=== PATIENT | female | born 1940 | race Caucasian/White ===

== ENCOUNTER 2017-06-29 12:04 | Emergency (ER) | payer MEDICARE, BC ==
[2017-06-29] MEDS ORDERED: Furosemide 40 MG/4 ML VIAL IVPUSH ONE (12:09)
--- NOTE | 2017-06-29 12:50 | EDM.PDOC ---
ED HPI GENERAL MEDICAL PROBLEM - General Chief Complaint: Cardiovascular Problem Stated Complaint: new onset a-fib Time Seen by Provider: 06/29/17 12:08 Source of Information: Reports: Patient, Other (Provider) History Limitations: Reports: No Limitations - History of Present Illness INITIAL COMMENTS - FREE TEXT/NARRATIVE: Patient is a 77 year who was seen by provider with chief complaint of shortness of breath with minimal exertion it was noted that she was on atrial fibrillation in the clinic to was transferred to the ER at this time she has a LORRAINE score of 3 I did discuss this with a [facility] cardiology we will transfer her to a [facility] for admission and evaluatio and treatment. Onset: Gradual Duration: Week(s):, Getting Worse Location: Reports: Chest Severity: Moderate Improves with: Reports: Rest Worsens with: Reports: Other (Activity) Context: Reports: Sick Contact Associated Symptoms: Reports: Diaphoresis, Shortness of Breath - Related Data Allergies Allergy/AdvReac Type Severity Reaction Status Date / Time No Known Allergies Allergy Verified 06/29/17 12:24 Home Meds: Home Meds Metoprolol Succinate 25 mg PO BEDTIME 05/16/14 [History] Aspirin [Halfprin] 81 mg PO DAILY@1200 06/29/17 [History] Cholecalciferol (Vitamin D3) [Vitamin D3] 4,000 unit PO BEDTIME 06/29/17 [ History] Fish Oil/DHA/EPA [Fish Oil 1,200 MG] 1 tab PO Q48H 06/29/17 [History] Lisinopril 10 mg PO BEDTIME 06/29/17 [History] Loratadine [Claritin] 10 mg PO DAILY@1200 06/29/17 [History] Lutein/Minerals/Vit A,C & E [Ocuvite] 1 tab PO Q48H 06/29/17 [History] Montelukast [Singulair] 10 mg PO BEDTIME 06/29/17 [History] Multivit-Min/FA/Lycopene/Lut [Centrum Silver Tablet] 1 tab PO DAILY 06/29/17 [ History] atorvaSTATin [Lipitor] 10 mg PO BEDTIME 06/29/17 [History] Social & Family History - Tobacco Use Second Hand Smoke Exposure: No - Alcohol Use Days Per Week of Alcohol Use: 0 - Recreational Drug Use Recreational Drug Use: No Drug Use in Last 12 Months: No ED ROS GENERAL - Review of Systems Review Of Systems: See Below Constitutional: Reports: Weakness, Fatigue, Night Sweats HEENT: Reports: No Symptoms Respiratory: Reports: Shortness of Breath Cardiovascular: Reports: Dyspnea on Exertion Endocrine: Reports: Other (Hypothyroid) GI/Abdominal: Reports: No Symptoms : Reports: No Symptoms Musculoskeletal: Reports: No Symptoms Skin: Reports: No Symptoms Neurological: Reports: No Symptoms Psychiatric: Reports: No Symptoms Free Text/Narrative/Comment: Patient seen and discussed case with hospitalist and [facility] we decided to transfer her to [facility] by ambulance for cardiac evaluation ED EXAM, GENERAL - Physical Exam Exam: See Below Exam Limited By: No Limitations General Appearance: Alert, WD/WN, No Apparent Distress Ears: Normal External Exam, Normal Canal, Hearing Grossly Normal, Normal TMs Nose: Normal Inspection, Normal Mucosa, No Blood Throat/Mouth: Normal Inspection, Normal Lips, Normal Teeth, Normal Gums, Normal Oropharynx, Normal Voice, No Airway Compromise Head: Atraumatic, Normocephalic Neck: Normal Inspection, Supple, Non-Tender, Full Range of Motion Respiratory/Chest: Other (Shortness breath with minimal eexertion minimal) Cardiovascular: Tachycardia, Irregularly Irregular GI/Abdominal: Normal Bowel Sounds, Soft, Non-Tender, No Organomegaly, No Distention, No Abnormal Bruit, No Mass Back Exam: Normal Inspection, Full Range of Motion, NT Extremities: Pedal Edema Neurological: Alert, Oriented, CN II-XII Intact, Normal Cognition, Normal Gait, Normal Reflexes, No Motor/Sensory Deficits Psychiatric: Normal Affect, Normal Mood Skin Exam: Warm, Dry, Intact, Normal Color, No Rash Lymphatic: No Adenopathy Course - Orders/Labs/Meds Orders: Active Orders 24 hr Category Date Time Status DD [D-DIMER QUANTITATIVE] [COAG] Stat Lab 06/29/17 12:10 Received Labs: Laboratory Tests 06/29/17 06/29/17 Range/Units 12:10 12:15 WBC 10.3 H (4.0-10.2) K/uL RBC 4.14 (3.77-5.09) M/uL Hgb 12.4 (11.7-15.5) g/dL Hct 38.2 (34.0-46.0) % MCV 92.3 (84.0-98.0) fL MCH 30.0 (28.2-33.3) pg MCHC 32.5 (31.7-36.0) g/dL RDW 13.4 (11.2-14.1) % Plt Count 249 (150-350) K/uL Neut % (Auto) 70.5 (45.0-80.0) % Lymph % (Auto) 19.3 (10.0-50.0) % [place] % (Auto) 7.4 (2.0-14.0) % Eos % (Auto) 2.3 (0.0-5.0) % Baso % (Auto) 0.5 (0.0-2.0) % Neut # (Auto) 7.25 H (1.40-7.00) K/uL Lymph # (Auto) 1.99 (0.50-3.50) K/uL [place] # (Auto) 0.76 (0.00-1.00) K/uL Eos # (Auto) 0.24 (0.00-0.50) K/uL Baso # (Auto) 0.05 (0.00-0.20) K/uL NT-Pro-B Natriuret Pep 2710 H (0-125) pg/mL Meds: Medications Discontinued Medications Generic Name Dose Route Start Last Admin Trade Name Freq PRN Reason Stop Dose Admin Furosemide 40 mg 06/29/17 12:09 06/29/17 12:17 Lasix IVPUSH 06/29/17 12:10 40 mg NOW ONE Administration Departure - Departure Time of Disposition: 13:02 Disposition: DC/Tfer to Acute Hospital 02 Reason for Transfer *Q: Primary PCI Indicated Condition: Good Clinical Impression: Atrial fibrillation, Atrial fibrillation by electrocardiogram, Congestive heart failure of unknown etiology Referrals: Ana Garces NP [Primary Care Provider] - Care Plan Goals: At this time we will transfer her to [facility] - Problem List & Annotations (1) Atrial fibrillation by electrocardiogram SNOMED Code(s): 707854262 Code(s): I48.91 - UNSPECIFIED ATRIAL FIBRILLATION Status: Acute Current Visit: Yes Annotation/Comment:: Patient is evaluated atrial fib question age at this time we considered starting her on anticoagulants but will transfer her so she could have cardiology evaluation and treatment she is currently on an aspirin a day 1 today (2) Congestive heart failure SNOMED Code(s): 18631757 Code(s): I50.9 - HEART FAILURE, UNSPECIFIED Status: Acute Current Visit: Yes Annotation/Comment:: Patient started on Lasix 40 mg IV now (3) Congestive heart failure of unknown etiology SNOMED Code(s): 88225098 Code(s): I50.9 - HEART FAILURE, UNSPECIFIED Status: Acute Current Visit: Yes Annotation/Comment:: Patient noted to have elevated BNP and chest x-ray compatible with CHF will start her on Lasix 40 mg IV push now - Problem List Review Problem List Initiated/Reviewed/Updated: Yes - My Orders Last 24 Hours: My Active Orders 06/29/17 12:10 DD [D-DIMER QUANTITATIVE] [COAG] Stat - Assessment/Plan Last 24 Hours: My Active Orders 06/29/17 12:10 DD [D-DIMER QUANTITATIVE] [COAG] Stat
[2017-06-29] MEDS ORDERED: Metoprolol Tartrate 5 MG/5 ML SDV IVPUSH ONE (13:15)
[2017-06-29 14:05] VITALS: BP 139/90
== END 2017-06-29 13:26 ==
LOC: LL.ED 12:04
DX: I50.9 Heart failure, unspecified (principal); I48.91 Unspecified atrial fibrillation; Z79.82 Long term (current) use of aspirin; Z79.899 Other long term (current) drug therapy; R06.00 Dyspnea, unspecified; R94.31 Abnormal electrocardiogram [ECG] [EKG]
CPT/HCPCS: 36415; 83880; 85025; 85379; 96374; 96375; 99285; J1940; 71020; 93005; J3490

== ENCOUNTER 2018-04-11 22:26 | Emergency (ER) | payer MEDICARE, BC ==
--- NOTE | 2018-04-11 22:58 | EDM.PDOC ---
ED HPI GENERAL MEDICAL PROBLEM - General Chief Complaint: General Stated Complaint: elevated K, creatinine Time Seen by Provider: 04/11/18 22:30 Source of Information: Reports: Patient History Limitations: Reports: No Limitations - History of Present Illness INITIAL COMMENTS - FREE TEXT/NARRATIVE: Patient is a 77-year-old female who was brought in to the ER by because of a call received from the [facility]er stating that her potassium was elevated at 5.6 and creatinine of 1.34 and that she she should be seen in the ER at this time patient is alert oriented in no acute distress eyes were PERRLA extraocular movement intact lungs clear heart regular rate Onset: Today Duration: Hour(s): - Related Data Allergies Allergy/AdvReac Type Severity Reaction Status Date / Time No Known Allergies Allergy Verified 06/29/17 12:24 Home Meds: Home Meds Metoprolol Succinate 25 mg PO BEDTIME 05/16/14 [History] Aspirin [Halfprin] 81 mg PO DAILY@1200 06/29/17 [History] Cholecalciferol (Vitamin D3) [Vitamin D3] 4,000 unit PO BEDTIME 06/29/17 [ History] Fish Oil/DHA/EPA [Fish Oil 1,200 MG] 1 tab PO Q48H 06/29/17 [History] Lisinopril 10 mg PO BEDTIME 06/29/17 [History] Loratadine [Claritin] 10 mg PO DAILY@1200 06/29/17 [History] Lutein/Minerals/Vit A,C & E [Ocuvite] 1 tab PO Q48H 06/29/17 [History] Montelukast [Singulair] 10 mg PO BEDTIME 06/29/17 [History] Multivit-Min/FA/Lycopene/Lut [Centrum Silver Tablet] 1 tab PO DAILY 06/29/17 [ History] atorvaSTATin [Lipitor] 10 mg PO BEDTIME 06/29/17 [History] Past Medical History HEENT History: Reports: Cataract Cardiovascular History: Reports: Afib, Heart Failure, Hypertension, SOB on Exertion - Past Surgical History HEENT Surgical History: Reports: Cataract Surgery ED ROS GENERAL - Review of Systems Review Of Systems: See Below Constitutional: Reports: No Symptoms HEENT: Reports: No Symptoms Respiratory: Reports: No Symptoms Cardiovascular: Reports: No Symptoms Endocrine: Reports: No Symptoms GI/Abdominal: Reports: No Symptoms : Reports: No Symptoms Musculoskeletal: Reports: No Symptoms Skin: Reports: No Symptoms Neurological: Reports: No Symptoms Psychiatric: Reports: No Symptoms Hematologic/Lymphatic: Reports: No Symptoms Immunologic: Reports: No Symptoms ED EXAM, GENERAL - Physical Exam Exam: See Below Exam Limited By: No Limitations General Appearance: Alert, WD/WN, No Apparent Distress Ears: Normal External Exam, Normal Canal, Hearing Grossly Normal, Normal TMs Ear Exam: Bilateral Ear: Auricle Normal, Canal Normal, TM normal Nose: Normal Inspection, Normal Mucosa, No Blood Throat/Mouth: Normal Inspection, Normal Lips, Normal Teeth, Normal Gums, Normal Oropharynx, Normal Voice, No Airway Compromise Head: Atraumatic, Normocephalic Neck: Normal Inspection, Supple, Non-Tender, Full Range of Motion Respiratory/Chest: No Respiratory Distress, Lungs Clear, Normal Breath Sounds, No Accessory Muscle Use, Chest Non-Tender Cardiovascular: Normal Peripheral Pulses, Regular Rate, Rhythm, No Edema, No Gallop, No JVD, No Murmur, No Rub GI/Abdominal: Normal Bowel Sounds, Soft, Non-Tender, No Organomegaly, No Distention, No Abnormal Bruit, No Mass (Female) Exam: Normal Bimanual Exam, Deferred Rectal (Female) Exam: Deferred Back Exam: Normal Inspection, Full Range of Motion, NT Extremities: Normal Inspection, Normal Range of Motion, Non-Tender, Normal Capillary Refill, No Pedal Edema Neurological: Alert, Oriented, CN II-XII Intact, Normal Cognition, Normal Gait, Normal Reflexes, No Motor/Sensory Deficits Psychiatric: Normal Affect, Normal Mood Skin Exam: Warm, Dry, Intact, Normal Color, No Rash Course - Orders/Labs/Meds Orders: Active Orders 24 hr Category Date Time Status EKG Documentation Completion [RC] ASDIRECTED Care 04/11/18 22:38 Active EKG 12 Lead [EK] Routine Ther 04/11/18 22:38 Ordered Labs: Laboratory Tests 04/11/18 04/11/18 Range/Units 22:34 22:34 WBC 8.8 (4.0-10.2) K/uL RBC 3.96 (3.77-5.09) M/uL Hgb 11.8 (11.7-15.5) g/dL Hct 36.2 (34.0-46.0) % MCV 91.4 (84.0-98.0) fL MCH 29.8 (28.2-33.3) pg MCHC 32.6 (31.7-36.0) g/dL RDW 13.1 (11.2-14.1) % Plt Count 264 (150-350) K/uL Neut % (Auto) 61.4 (45.0-80.0) % Lymph % (Auto) 27.0 (10.0-50.0) % [place] % (Auto) 8.2 (2.0-14.0) % Eos % (Auto) 2.9 (0.0-5.0) % Baso % (Auto) 0.5 (0.0-2.0) % Neut # (Auto) 5.43 (1.40-7.00) K/uL Lymph # (Auto) 2.38 (0.50-3.50) K/uL [place] # (Auto) 0.72 (0.00-1.00) K/uL Eos # (Auto) 0.26 (0.00-0.50) K/uL Baso # (Auto) 0.04 (0.00-0.20) K/uL Sodium 139 (136-145) mmol/L Potassium 3.7 (3.5-5.1) mmol/L Chloride 102 (98-107) mmol/L Carbon Dioxide 28.1 (21.0-32.0) mmol/L BUN 23 H (7-18) mg/dL Creatinine 1.43 H (0.51-1.17) mg/dL Est Cr Clr Drug Dosing TNP Estimated GFR (MDRD) 36 mL/min Glucose 126 H (74-106) mg/dL Calcium 8.7 (8.5-10.1) mg/dL Total Bilirubin 0.3 (0.2-1.0) mg/dL AST 23 (15-37) U/L ALT 26 (12-78) U/L Alkaline Phosphatase 104 (46-116) IU/L Total Protein 7.5 (6.4-8.2) g/dL Albumin 3.9 (3.4-5.0) g/dL Departure - Departure Time of Disposition: 23:15 Disposition: Home, Self-Care 01 Condition: Good Clinical Impression: Acute renal injury - Discharge Information Referrals: Ana Garces NP [Primary Care Provider] - Forms: ED Department Discharge Additional Instructions: Patient's BMP was repeated her potassium was 3.7 her creatinine was 1.43 at this time I went ahead and discontinue her IV an EKG was obtained which showed no ST elevations plan patient is to or hydrate with these 6 bilateral of water a day she is to follow-up with her [facility]er next week she is to discontinue her lisinopril and continue her an metoprolol. Care Plan Goals: Patient will be sent home with the above instructions follow-up with Ana if need be - My Orders Last 24 Hours: My Active Orders 04/11/18 22:38 EKG Documentation Completion [RC] ASDIRECTED EKG 12 Lead [EK] Routine - Assessment/Plan Last 24 Hours: My Active Orders 04/11/18 22:38 EKG Documentation Completion [RC] ASDIRECTED EKG 12 Lead [EK] Routine
[2018-04-11 23:05] LABS: CHLORIDE,CL 102 mmol/L (98-107); SODIUM,NA 139 mmol/L (136-145)
[2018-04-12 00:28] VITALS: BP 150/78
== END 2018-04-11 23:45 | disposition home or self-care (01) ==
LOC: LL.ED 22:26
DX: N17.9 Acute kidney failure, unspecified (principal); I48.91 Unspecified atrial fibrillation; I11.0 Hypertensive heart disease with heart failure; I50.9 Heart failure, unspecified; Z79.899 Other long term (current) drug therapy; Z79.82 Long term (current) use of aspirin
CPT/HCPCS: 36000; 36415; 80053; 85025; 93005; 99285

== ENCOUNTER 2020-12-24 10:19 | Inpatient (IN) | payer MEDICARE, BC ==
[2020-12-24] MEDS ORDERED: Famotidine 20 MG/2 ML SDV IVPUSH ONE (10:21)
--- NOTE | 2020-12-24 10:21 | EDM.PDOC ---
ED HPI GENERAL MEDICAL PROBLEM - General Chief Complaint: Chest Pain Stated Complaint: heart palpatations Time Seen by Provider: 12/24/20 10:21 Source of Information: Reports: Patient, Old Records ([facility] chart/EMR), Other ( [facility]. Limited transfer records from [facility] in [place]) History Limitations: Reports: No Limitations - History of Present Illness INITIAL COMMENTS - FREE TEXT/NARRATIVE: The patient was brought to the emergency room via private automobile by her for evaluation of return to atrial fibrillation with rapid ventricular response with initial evaluation by her regular provider, KATY Pizarro at the [facility], shortly prior to arrival with no treatment other than an EKG in her clinic prior to patient transfer. Her provider did call me prior to the patient arriving to this facility. Note that the patient has had heart flutter with secondary dizziness, occasional nausea, mild dyspnea, decreased ex ercise tolerance and a 5 pound weight gain during the last week. She has been noncompliant with her medical therapy, including decreasing her Lopressor therapy to only a every afternoon rather than twice daily basis about 6 months ago. She also stopped her Xarelto about 1 year ago on her own, however she has been taking aspirin. The patient denies any orthostasis, orthopnea, diaphoresis, paresthesias, or any other anginal-type symptoms. No recent history of abdominal pain, heartburn, nausea, diarrhea, melena, gross hematochezia, or any food intolerance, including fatty foods, etc. with normal bowel movement earlier today. She denies any gross hematuria, colic, or other UTI symptoms. The patient also denies any recent fever, cough, wheezing, etc., and she has already had her 2 COVID-19 immunizations. No history of recent headaches, visual changes, diplopia, change in mental status, or other change in neurological status. She denies any other pain or discomfort. No history of ex cessive decongestants, etc. Onset: Gradual, Other (As above) Duration: Week(s): (As above), Constant, Getting Worse Location: Reports: Other (No pain) Quality: Reports: Same as Previous Episode Severity: Moderate (Tachycardia) Improves with: Reports: None Worsens with: Reports: None Context: Reports: Other (As above). Denies: Sick Contact, Trauma Associated Symptoms: Reports: Nausea/Vomiting (No emesis), Shortness of Breath. 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: Reports: Other (see below) (None) - Related Data Allergies Allergy/AdvReac Type Severity Reaction Status Date / Time No Known Allergies Allergy Verified 12/24/20 10:21 Home Meds: Home Meds Metoprolol Succinate 50 mg PO BEDTIME 05/16/14 [History] Aspirin [Halfprin] 81 mg PO BEDTIME 06/29/17 [History] Lutein/Minerals/Vit A,C & E [Ocuvite] 1 tab PO DAILY@1200 06/29/17 [History] Montelukast [Singulair] 10 mg PO BEDTIME 06/29/17 [History] Multivit-Min/FA/Lycopen/Lutein [Centrum Silver Tablet] 1 tab PO DAILY@1200 06/29/17 [History] atorvaSTATin [Lipitor] 10 mg PO BEDTIME 06/29/17 [History] Calcium Carbonate [Calcium] 600 mg PO DAILY@1200 12/24/20 [History] Cholecalciferol (Vitamin D3) [Vitamin D3] 25 mcg PO DAILY@1200 12/24/20 [History] Loratadine [Claritin] 10 mg PO DAILY@1200 12/24/20 [History] Magnesium Oxide 400 mg PO DAILY@1200 12/24/20 [History] Past Medical History HEENT History: Reports: Allergic Rhinitis, Cataract, Impaired Vision. Denies: Glaucoma, Hard of Hearing, Macular Degeneration, Otitis Media, Retinal Detachment Cardiovascular History: Reports: Afib, Cardiomyopathy, Heart Failure, Heart Murmur, High Cholesterol, Hypertension, Pulmonary Hypertension, Other (See Below). Denies: Aneurysm, Arrhythmia, Blood Clots/VTE/DVT, CAD, RI, Pacemaker, PTCA, PVD, Syncope Other Cardiovascular History: Recurrent atrial fibrillation with rapid ventricular response and secondary heart failure with cardioversions and ablation procedure as below. Dyslipidemia. Moderate tricuspid valve insufficiency, mild mitral valve insufficiency, mitral valve prolapse, and mild pulmonary hypertension by echocardiogram. Respiratory History: Reports: Bronchitis, Recurrent, Intubation, Previous. Denies: Asthma, COPD, Intubation, Difficult, PE, Pneumonia, Recurrent, Pneumothorax, Sleep Apnea, TB Gastrointestinal History: Reports: Diverticulosis, Hemorrhoids. Denies: Celiac Disease, Cholelithiasis, Chronic Constipation, Chronic Diarrhea, Colon Polyp, Fatty Liver, Fecal Incontinence, Gastritis, GERD, GI Bleed, Hepatitis, Hiatal Hernia, Inflammatory Bowel Disease, Irritable Bowel Syndrome, Jaundice, Pancreatitis, PUD Genitourinary History: Reports: Chronic Renal Insuffiency, UTI, Recurrent, Other (See Below). Denies: Acute Renal Failure, Renal Calculus, Retention, Urinary, STD, Urinary Incontinence Other Genitourinary History: Grade 3 chronic renal insufficiency. 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 SAB in first trimester requiring D&C as below. Otherwise, full term without complications during pregnancies or deliveries. Musculoskeletal History: Reports: Arthritis, Back Pain, Chronic, Neck Pain, Chronic, Osteoarthritis, Other (See Below). Denies: Amputation, Fracture (Do you have any problems with rheumatoid arthritis lupus or gout previous broken bones of any sort with arthritisIron), Gout, Osteoporosis, RA, SLE Other Musculoskeletal History: Bilateral coxarthrosis. Neurological History: Reports: None, Migraines. Denies: Alzheimers Disease, Cerebral Aneurysms, Concussion, CVA, Headaches, Chronic, Head Trauma, MS, Neuropathy, Peripheral, Parkinson's, Seizure, TIA, Vertigo Psychiatric History: Reports: None. Denies: Abuse, Victim of, ADD, ADHD, Addiction, Alzheimers Disease, Anxiety, Dementia, Depression, Psych Hospitalization(s), PTSD, Suicide Attempt, Suicidal Ideation Endocrine/Metabolic History: Reports: Obesity/BMI 30+, Vitamin D Deficiency. Denies: Diabetes, Gestational, Diabetes, Type I, Diabetes, Type II, Diabetes Mellitus, Type 3c, Hypothyroidism, IDDM, Osteopenia, Osteoporosis Hematologic History: Reports: Anemia, Blood Transfusion(s), Other (See Below). Denies: Iron Deficiency Other Hematologic History: Transfusion after first delivery and shortly prior to hysterectomy secondary to dysfunctional uterine bleeding. Anemia with moderate blood loss not requiring blood transfusion at time of ablation as below. Immunologic History: Denies: AIDS, HIV, SLE Oncologic (Cancer) History: Denies: Basal Cell Carcinoma, Breast, Cervix, Colon, Hodgkin's Lymphoma, Leukemia, Lymphoma, Malignant Melanoma, Non-Hodgkin's Lymphoma, Ovarian, Squamous Cell Carcinoma, Uterine Dermatologic History: Reports: None. Denies: Eczema, Psoriasis - Infectious Disease History Infectious Disease History: Reports: Chicken Pox, Measles, Mumps. Denies: C- Difficile, Meningitis, Mononucleosis, MRSA, Novel Coronavirus, Pertussis (Whooping Cough), Rheumatic Fever, Rubella, Scarlet Fever, Shingles, TB, VRE - Past Surgical History Head Surgeries/Procedures: Reports: None HEENT Surgical History: Reports: Cataract Surgery, Oral Surgery, Other (See Below). Denies: Adenoidectomy, Eye Surgery, Laser Surgery, LASIK, Myringotomy w Tube(s), Naso-Sinus Surgery, Tonsillectomy Other HEENT Surgeries/Procedures: Bilateral cataract surgeries at age 59. Complete upper teeth extraction with multiple teeth extraction lowers. Cardiovascular Surgical History: Reports: Cardiac Ablation, Other (See Below). Denies: Varicose Other Cardiovascular Surgeries/Procedures: Electrocardioversion for atrial fibrillation on 07/13/2017 and 06/30/2017. Cardiac ablation on 08/04/2017. Respiratory Surgical History: Reports: None. Denies: Thoracentesis GI Surgical History: Reports: Appendectomy, Colonoscopy, Other (See Below). Denies: Cholecystectomy, EGD, Hernia, Abdominal, Hernia, Inguinal, Hernia Repair/Other, Polypectomy Other GI Surgeries/Procedures: Appendectomy concomitant with hysterectomy as below. Colonoscopy on 05/16/2014. Female Surgical History: Reports: Breast Biopsy, D&C, Hysterectomy, Oophorectomy, Tubal Ligation, Other (See Below). Denies: Section Other Female Surgeries/Procedures: Left breast biopsy secondary to benign disease at age in her 30s. Complete hysterectomy with left-sided oophorectomy secondary to dysfunctional uterine bleeding at age 49. Bilateral tubal ligation in her early 40s. D&C secondary to SAB as above. Endocrine Surgical History: Reports: None. Denies: Thyroid Biopsy Neurological Surgical History: Reports: None. Denies: C-Spine, Discectomy, Laminectomy, Lumbar Spine, Sacral Spine, Spinal Fusion, Thoracic Spine, Vertebroplasty Musculoskeletal Surgical History: Reports: None. Denies: Arthroscopic Procedure, Carpal Tunnel, Ganglion Cyst, Joint Replacement, ORIF, Shoulder Surgery Oncologic Surgical History: Reports: None Dermatological Surgical History: Reports: None - Past Imaging History Past Imaging History: Reports: Cardiac Echo (Last on 02/23/2018 with ejection fraction of 60-65% with transesophageal echocardiograms on 07/13/2017 and 06/30/2017. Previous echocardiogram on 10/30/2010.), CAT Scan (Negative CT of the chest on 07/27/2017), DEXA Scan (02/20/2016, 04/30/2014, and 12/10/2005.), MRI (Right hip on 09/22/2020. Lumbar spine on 09/15/2020.), Stress Testing (Negative Lexiscan on 06/30/2017 with ejection fraction of 74%.), Ultrasound (Renal ultrasound on 09/15/2017. Negative Kinevac study of the gallbladder on 12/06/2011.) Social & Family History - Family History HEENT: Reports: Glaucoma, Other (See Below). Denies: Macular Degeneration, Retinal Detachment Other HEENT Family History: Maternal grandmother with glaucoma. Cardiac: Reports: Afib, Arrhythmia, Cardiomyopathy, Heart Failure, High Cholesterol, Hypertension, Other (See Below). Denies: Aneurysm, Blood Clots/VTE/DVT, CAD, RI, Pacemaker, PVD/COD, Syncope Other Cardiac Family History: Hypertension in father and 2 brothers. Hyperlipidemia and brothers x2. Granddaughter with atrial fibrillation at age 41. Brother with atrial fibrillation requiring ablation at age 64. Mother with fatal CHF at age 91. Respiratory: Reports: Asthma, Other (See Below). Denies: COPD, Pneumothorax, Sleep Apnea Other Respiratory Family Hisory: Father with asthma/Newell's lung. GI: Reports: None, Colon Polyps (Maternal grandfather in his 60s and sister in her 40s with colon cancer as below.). Denies: Celiac Disease, Cholelithiasis, GERD, GI bleed, Inflammatory Bowel Disease, Irritable Bowel Syndrome, PUD : Reports: None (Anybody with kidney failure kidney stones). Denies: Dialysis, Renal Calculus, Renal Disease/Insufficiency OBGYN: Reports: None (Okay debilitating arthritis). Denies: Dysfunctional uterine bleeding, Endometriosis, Recurrent Spontaneous Musculoskeletal: Reports: Arthritis, Osteoarthritis, Other (See Below) Other Musculoskeletal Family History: Parents with osteoarthritis. Neurological: Reports: Alzheimers Disease, Dementia, Other (See Below). Denies: Cerebral Aneurysms, CVA, Migraines, MS, Parkinson's, Seizure, TIA Other Neurological Family History: Maternal grandmother with organic brain syndrome. Psychiatric: Reports: None. Denies: Abuse, Victim of, ADD, ADHD, Anxiety, Depression, Psych Hospitalization(s), PTSD, Suicide Attempt Endocrine/Metabolic: Reports: Hypothyroidism, Other (See Below). Denies: Diabetes, Gestational, Diabetes, Type I, Diabetes, type II, Diabetes Mellitus, Type 3c, IDDM Other Endocrine/Metabolic Family History: Daughter with hypothyroidism. Hematologic: Reports: None. Denies: SLE Immunologic: Reports: None. Denies: AIDS, HIV, SLE Dermatologic: Reports: None. Denies: Eczema, Psoriasis Oncologic: Reports: Breast, Colon, Lung, Prostate, Other (See Below). Denies: Cervix, Hodgkin's Lymphoma, Leukemia, Lymphoma, Non-Hodgkin's Lymphoma, Skin, Uterine Other Oncologic Family History: Brother with lung cancer fatal at age 55 with history of tobacco use. Maternal aunt with breast cancer in her 60s. Maternal grandfather and sister with colon cancer as above. Father with prostate cancer fatal at age 91.. - Tobacco Use Tobacco Use Status *Q: Never Tobacco User Tobacco Use Within Last Twelve Months: No Used Tobacco, but Quit: No Smoking Cessation Information Provided To Patient: No Second Hand Smoke Exposure: No Second Hand Smoke Education Provided: No - Caffeine Use Caffeine Use: Reports: Coffee, Soda (Rare). Denies: Energy Drinks, Tea Other Caffeine Use: 2 cups/day - Alcohol Use Alcohol Use History: Yes Days Per Week of Alcohol Use: 0 Number of Drinks Per Day: 1 Number of Drinks Per Day Comment: Usually beer on rare occasions and holidays. No previous DWIs, problems with alcohol abuse, etc. 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 ED EXAM, GENERAL - Physical Exam Exam: See Below Exam Limited By: No Limitations General Appearance: Alert, WD/WN, No Apparent Distress Eye Exam: Bilateral Eye: EOMI, Normal Inspection (The patient is wearing glasses. No vertigo or nystagmus), PERRL Ears: Normal External Exam, Normal Canal, Hearing Grossly Normal, Normal TMs Nose: Normal Inspection, Normal Mucosa, No Blood Throat/Mouth: Normal Inspection, Normal Lips, Normal Teeth (Complete upper dentures with partial hours), Normal Gums, Normal Oropharynx, Normal Voice, No Airway Compromise. No: Dysphagia, Inflammation, Perioral Cyanosis Head: Atraumatic, Normocephalic. No: Facial Swelling, Facial Tenderness, Sinus Tenderness Neck: Supple, Non-Tender, Full Range of Motion, Carotid Bruit ( mild bilateral carotid bruits). No: Lymphadenopathy (L), Lymphadenopathy (R), Thyromegaly Respiratory/Chest: No Respiratory Distress, No Accessory Muscle Use, Chest Non- Tender, Rales (Mild bilateral baseline). No: Rhonchi, Wheezing, Pleural Rub, Retractions Cardiovascular: Normal Peripheral Pulses, No Gallop, No JVD, No Murmur, No Rub, Tachycardia, Irregularly Irregular. No: No Edema (Dependent edema as below), Gallop/S3, Gallop/S4, Friction Rub Peripheral Pulses: 2+: Radial (L), Radial (R), Dorsalis Pedis (L), Dorsalis Pedis (R) GI/Abdominal: Normal Bowel Sounds, Soft, Non-Tender, No Organomegaly, No Distention, No Abnormal Bruit, No Mass, Pelvis Stable, Other (Obese). No: Guarding (Female) Exam: Deferred Rectal (Female) Exam: Deferred Back Exam: Normal Inspection, Full Range of Motion. No: CVA Tenderness (L), CVA Tenderness (R), Muscle Spasm Extremities: Normal Range of Motion, Non-Tender, Pedal Edema (Trace bilateral pedal/pretibial edema), Other (Mild swelling of the right calf with negative Homans' sign). No: Enmanuel's Sign Neurological: Alert, Oriented, CN II-XII Intact, Normal Cognition, Normal Gait, Normal Reflexes (Negative Babinski's), No Motor/Sensory Deficits Psychiatric: Normal Affect, Normal Mood Skin Exam: Warm, Dry, Intact, Normal Color, No Rash Lymphatic: No Adenopathy #1 Interpretation EKG Date: 12/24/20 Time: 10:37 Rhythm: A-Fib Rate (Beats/Min): 113 [place]: Normal (Neutral) P-Wave: Variable QRS: Normal (0.07 seconds) ST-T: Normal QT: Normal [place]/PQ Interval: Not applicable. Mild poor R wave progression in the anterior leads Comparison: Change From Previous EKG (persistent atrial fibrillation from EKG at the [facility] prior to transfer with returned atrial fibrillation from previous normal sinus rhythm on 04/11/2018.) EKG Interpretation Comments: 1. No acute ischemic changes 2. Atrial fibrillation with rapid ventricular response Course - Vital Signs Last Recorded V/S: Last Vital Signs Temp 36.2 C 12/24/20 12:06 Pulse 94 12/24/20 12:06 Resp 20 12/24/20 12:06 BP 99/71 12/24/20 12:06 Pulse Ox 100 12/24/20 12:06 Vital Signs - 24 hr 12/24/20 12/24/20 12/24/20 10:21 10:22 10:23 Temperature [ 36.2 C 36.2 C Temporal] Pulse, Peripheral Pulse, 100 112 H Peripheral [ Right Pulse Oximetry] Respiratory 16 16 Rate Blood Pressure Blood Pressure [Left Upper Arm ] Blood Pressure 149/112 H 140/93 H [Right Upper Arm] O2 Sat by Pulse 100 100 Oximetry O2 Sat by Pulse 99 Oximetry [Room Air] 12/24/20 12/24/20 12/24/20 10:41 10:51 11:09 Temperature [ 36.4 C Temporal] Pulse, 96 Peripheral Pulse, 99 90 Peripheral [ Right Pulse Oximetry] Respiratory 16 18 Rate Blood Pressure 140/93 H Blood Pressure 118/65 121/77 [Left Upper Arm ] Blood Pressure [Right Upper Arm] O2 Sat by Pulse 100 99 Oximetry O2 Sat by Pulse Oximetry [Room Air] 12/24/20 12/24/20 11:22 11:45 Temperature [ Temporal] Pulse, Peripheral Pulse, 91 95 Peripheral [ Right Pulse Oximetry] Respiratory 20 22 H Rate Blood Pressure Blood Pressure 134/87 106/71 [Left Upper Arm ] Blood Pressure [Right Upper Arm] O2 Sat by Pulse 100 99 Oximetry O2 Sat by Pulse Oximetry [Room Air] - Orders/Labs/Meds Orders: Active Orders 24 hr Category Date Time Status Cardiac Monitoring [RC] . DIRECTED Care 12/24/20 10:21 Active EKG Documentation Completion [RC] ASDIRECTED Care 12/24/20 10:21 Active Oxygen Therapy, ED [RC] PRN Care 12/24/20 10:21 Active Peripheral IV Care [RC] . DIRECTED Care 12/24/20 10:21 Active Pulse Oximetry [RC] CONTINUOUS Care 12/24/20 10:21 Active Up With Assistance [RC] PFP Care 12/24/20 10:21 Active Vital Signs [RC] PFP Care 12/24/20 10:21 Active Nothing per Oral Now Diet [DIET] Diet 12/24/20 Breakfast Active Chest 1V Frontal [CR] Stat Exams 12/24/20 10:21 Taken Sodium Chloride 0.9% [Saline Flush] Med 12/24/20 10:21 Active 10 ml FLUSH ASDIRECTED PRN Obtain Past Medical Record [OM.PC] Urgent Oth 12/24/20 10:21 Active Peripheral IV Insertion Adult [OM.PC] Stat Oth 12/24/20 10:21 Ordered Resuscitation Status Stat Resus Stat 12/24/20 10:21 Ordered Medication Orders Sodium Chloride (Sodium Chloride 0.9% 10 Ml Syringe) 10 ml FLUSH ASDIRECTED PRN PRN Reason: Keep Vein Open Last Admin: 12/24/20 10:28 Dose: 10 ml Documented by: ERIN Labs: Laboratory Tests 12/24/20 12/24/20 12/24/20 Range/Units 10:28 10:28 10:28 WBC 13.4 H (4.0-10.2) K/uL RBC 4.04 (3.77-5.09) M/uL Hgb 11.7 (11.7-15.5) g/dL Hct 37.4 (34.0-46.0) % MCV 92.6 (84.0-98.0) fL MCH 29.0 (28.2-33.3) pg MCHC 31.3 L (31.7-36.0) g/dL RDW 15.0 H (11.2-14.1) % Plt Count 296 (150-350) K/uL Neut % (Auto) 82.3 H (45.0-80.0) % Lymph % (Auto) 9.6 L (10.0-50.0) % [place] % (Auto) 6.6 (2.0-14.0) % Eos % (Auto) 1.0 (0.0-5.0) % Baso % (Auto) 0.5 (0.0-2.0) % Neut # (Auto) 11.04 H (1.40-7.00) K/uL Lymph # (Auto) 1.29 (0.50-3.50) K/uL [place] # (Auto) 0.89 (0.00-1.00) K/uL Eos # (Auto) 0.14 (0.00-0.50) K/uL Baso # (Auto) 0.07 (0.00-0.20) K/uL PT 11.4 (9.5-12.0) SEC INR 1.1 APTT 24.8 (24.5-32.8) SEC D-Dimer, Quantitative 867 H (0-400) ng/mL Sodium (136-145) mmol/L Potassium (3.5-5.1) mmol/L Chloride (98-107) mmol/L Carbon Dioxide (21.0-32.0) mmol/L BUN (7-18) mg/dL Creatinine (0.51-1.17) mg/dL Est Cr Clr Drug Dosing mL/min Estimated GFR (MDRD) mL/min Glucose (70-99) mg/dL Lactic Acid (0.4-2.0) mmol/L Uric Acid (2.6-7.2) mg/dL Calcium (8.5-10.1) mg/dL Magnesium (1.8-2.4) mg/dL Total Bilirubin (0.2-1.0) mg/dL AST (15-37) U/L ALT (12-78) U/L Alkaline Phosphatase (46-116) IU/L Creatine Kinase (26-308) U/L Creatine Kinase Index (0.0-2.5) % CK-MB (CK-2) (0.00-3.60) ng/mL Troponin I (0.000-0.056) ng/mL NT-Pro-B Natriuret Pep (0-125) pg/mL Total Protein (6.4-8.2) g/dL Albumin (3.4-5.0) g/dL TSH, Ultra Sensitive (0.358-3.740) mIU/mL 12/24/20 12/24/20 Range/Units 10:28 10:28 WBC (4.0-10.2) K/uL RBC (3.77-5.09) M/uL Hgb (11.7-15.5) g/dL Hct (34.0-46.0) % MCV (84.0-98.0) fL MCH (28.2-33.3) pg MCHC (31.7-36.0) g/dL RDW (11.2-14.1) % Plt Count (150-350) K/uL Neut % (Auto) (45.0-80.0) % Lymph % (Auto) (10.0-50.0) % [place] % (Auto) (2.0-14.0) % Eos % (Auto) (0.0-5.0) % Baso % (Auto) (0.0-2.0) % Neut # (Auto) (1.40-7.00) K/uL Lymph # (Auto) (0.50-3.50) K/uL [place] # (Auto) (0.00-1.00) K/uL Eos # (Auto) (0.00-0.50) K/uL Baso # (Auto) (0.00-0.20) K/uL PT (9.5-12.0) SEC INR APTT (24.5-32.8) SEC D-Dimer, Quantitative (0-400) ng/mL Sodium 137 (136-145) mmol/L Potassium 4.0 (3.5-5.1) mmol/L Chloride 100 (98-107) mmol/L Carbon Dioxide 24.0 (21.0-32.0) mmol/L BUN 18 (7-18) mg/dL Creatinine 1.17 (0.51-1.17) mg/dL Est Cr Clr Drug Dosing 31.54 mL/min Estimated GFR (MDRD) 45 mL/min Glucose 115 H (70-99) mg/dL Lactic Acid 1.7 (0.4-2.0) mmol/L Uric Acid 7.7 H (2.6-7.2) mg/dL Calcium 9.0 (8.5-10.1) mg/dL Magnesium 1.9 (1.8-2.4) mg/dL Total Bilirubin 1.5 H (0.2-1.0) mg/dL AST 49 H (15-37) U/L ALT 49 (12-78) U/L Alkaline Phosphatase 187 H (46-116) IU/L Creatine Kinase 88 (26-308) U/L Creatine Kinase Index 1.9 (0.0-2.5) % CK-MB (CK-2) 1.70 (0.00-3.60) ng/mL Troponin I 0.013 (0.000-0.056) ng/mL NT-Pro-B Natriuret Pep 5902 H (0-125) pg/mL Total Protein 6.9 (6.4-8.2) g/dL Albumin 3.7 (3.4-5.0) g/dL TSH, Ultra Sensitive 3.780 H (0.358-3.740) mIU/mL Meds: Medications Generic Name Dose Route Start Last Admin Trade Name Freq PRN Reason Stop Dose Admin Sodium Chloride 10 ml 12/24/20 10:21 12/24/20 10:28 Sodium Chloride 0.9% 10 Ml Syringe FLUSH 10 ml ASDIRECTED PRN Administration Keep Vein Open Discontinued Medications Generic Name Dose Route Start Last Admin Trade Name Freq PRN Reason Stop Dose Admin Diltiazem HCl 20 mg 12/24/20 10:22 12/24/20 10:27 Diltiazem 25 Mg/5 Ml Sdv IVPUSH 12/24/20 10:23 10 mg ONETIME ONE Administration Diltiazem HCl 120 mg 12/24/20 10:36 12/24/20 10:41 Diltiazem 120 Mg Cap.Cd PO 12/24/20 10:37 120 mg ONETIME ONE Administration Famotidine 40 mg 12/24/20 10:21 12/24/20 10:28 Famotidine 20 Mg/2 Ml Sdv IVPUSH 12/24/20 10:22 40 mg ONETIME ONE Administration - Radiology Interpretation Free Text/Narrative:: 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 Improved tachycardia to the 80-90s after medical therapy as above. Chest x-ray, portable, shows evidence of severe cardiomegaly with mild CHF and/or pulmonary hypertension. Moderate COPD changes with left lower lobe atelectasis but no direct evidence of pulmonary infiltrates, pneumothorax, etc. Departure - Departure Time of Disposition: 12:20 Disposition: Admitted As Inpatient 67 Condition: Good Clinical Impression: Dyslipidemia, Hyperuricemia, Elevated LFTs, Elevated d-dimer, Hyperbilirubinemia, Renal insufficiency Congestive heart failure Qualifiers: Heart failure type: systolic Heart failure chronicity: acute on chronic Qualified Code(s): I50.23 - Acute on chronic systolic (congestive) heart failure Hypertension Qualifiers: Hypertension type: essential hypertension Qualified Code(s): I10 - Essential (primary) hypertension Atrial fibrillation Qualifiers: Atrial fibrillation type: paroxysmal Qualified Code(s): I48.0 - Paroxysmal atrial fibrillation Sepsis Event Note (ED) - Focused Exam Vital Signs: Vital Signs Temp Pulse Pulse Resp BP BP BP 12/24/20 11:45 95 22 H 106/71 12/24/20 11:22 91 20 134/87 12/24/20 11:09 90 18 121/77 12/24/20 10:51 36.4 C 99 16 118/65 12/24/20 10:41 96 140/93 H 12/24/20 10:23 36.2 C 112 H 16 140/93 H 12/24/20 10:22 36.2 C 100 16 149/112 H 12/24/20 10:21 Pulse Ox Pulse Ox 12/24/20 11:45 99 12/24/20 11:22 100 12/24/20 11:09 99 12/24/20 10:51 100 12/24/20 10:41 12/24/20 10:23 100 12/24/20 10:22 100 12/24/20 10:21 99 - Problem List & Annotations (1) Atrial fibrillation SNOMED Code(s): 67431200 Code(s): I48.91 - UNSPECIFIED ATRIAL FIBRILLATION Status: Acute Priority: High Current Visit: Yes Annotation/Comment:: Recurrent atrial fibrillation with previous successful cardiac ablation as above. No chest pain or anginal type symptoms with mild CHF with otherwise no evidence of cardiac ischemia either by EKG or cardiac blood work with only mildly changed troponin I, which is still normal. Cardiology consultation depending on her clinical course. Patient did respond extremely well to IV diltiazem with only 10 mg required. Oral Cardizem CD also started in the emergency room. Note history of medication noncompliance with her previous Lopressor therapy. Patient will need to be restarted on Xarelto with this to be possibly held in the future for planned upcoming right hip surgery on 01/20/2021. Initiate standard rule out RI orders. Qualifiers: Atrial fibrillation type: paroxysmal Qualified Code(s): I48.0 - Paroxysmal atrial fibrillation (2) Congestive heart failure SNOMED Code(s): 81424745 Code(s): I50.9 - HEART FAILURE, UNSPECIFIED Status: Acute Priority: High Current Visit: Yes Annotation/Comment:: CHF likely secondary to her atrial fibrillation with rapid ventricular response. Additional likely secondary leukocytosis consistent with stress reaction from her arrhythmia. No fever or signs of infection. Last echocardiogram on 02/23/2018 with consideration of repeating this procedure prior to planned right hip surgery as above. Further medication adjustments during this hospitalization note history of renal insufficiency. Qualifiers: Heart failure type: systolic Heart failure chronicity: acute on chronic Qualified Code(s): I50.23 - Acute on chronic systolic (congestive) heart failure (3) Dyslipidemia SNOMED Code(s): 957825109 Code(s): E78.5 - HYPERLIPIDEMIA, UNSPECIFIED Status: Chronic Priority: Medium Current Visit: Yes Annotation/Comment:: Currently under therapy. Lipid panel and glycosylated hemoglobin in the a.m. (4) Elevated LFTs SNOMED Code(s): 247856009 Code(s): R79.89 - OTHER SPECIFIED ABNORMAL FINDINGS OF BLOOD CHEMISTRY Status: Acute Priority: Medium Current Visit: Yes Onset Date: 12/24/20 Annotation/Comment:: Likely secondary to her CHF. 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 (5) Elevated d-dimer SNOMED Code(s): 201831394 Code(s): R79.89 - OTHER SPECIFIED ABNORMAL FINDINGS OF BLOOD CHEMISTRY Status: Acute Priority: High Current Visit: Yes Onset Date: 12/24/20 Annotation/Comment:: Possible DVT of the right calf. Venous Doppler studies and CTA of the chest to be conducted MARCEL shortly after admission. (6) Hyperbilirubinemia SNOMED Code(s): 79226691 Code(s): E80.6 - OTHER DISORDERS OF BILIRUBIN METABOLISM Status: Acute Priority: Medium Current Visit: Yes Onset Date: 12/24/20 Anno tation/Comment:: As above (7) Hypertension SNOMED Code(s): 51382211 Code(s): I10 - ESSENTIAL (PRIMARY) HYPERTENSION Status: Chronic Priority: Medium Current Visit: Yes Annotation/Comment:: Good control in the e mergency room. Qualifiers: Hypertension type: essential hypertension Qualified Code(s): I10 - Essential (primary) hypertension (8) Hyperuricemia SNOMED Code(s): 11925895 Code(s): E79.0 - HYPERURICEMIA W/O SIGNS OF INFLAM ARTHRIT AND TOPHACEOUS DIS Status: Acute Priority: Medium Current Visit: Yes Onset Date: 12/24/20 Annotation/Comment:: Newly diagnosed. Her arthritis is otherwise stable with exception of chronic right hip surgery with planned surgery as above. Patient has been walking with a cane. (9) Renal insufficiency SNOMED Code(s): 717487556, 681987011 Code(s): N28.9 - DISORDER OF KIDNEY AND URETER, UNSPECIFIED Status: Chronic Priority: Medium Current Visit: Yes Annotation/Comment:: Renal function good on admission. Continue to observe closely secondary to aggressive IV Lasix therapy for her CHF. - Problem List Review Problem List Initiated/Reviewed/Updated: Yes - My Orders Last 24 Hours: My Active Orders 12/24/20 Breakfast Nothing per Oral Now Diet [DIET] 12/24/20 10:21 Cardiac Monitoring [RC] . DIRECTED EKG Documentation Completion [RC] ASDIRECTED Oxygen Therapy, ED [RC] PRN Peripheral IV Care [RC] . DIRECTED Pulse Oximetry [RC] CONTINUOUS Up With Assistance [RC] PFP Vital Signs [RC] PFP Chest 1V Frontal [CR] Stat Sodium Chloride 0.9% [Saline Flush] 10 ml FLUSH ASDIRECTED PRN Obtain Past Medical Record [OM.PC] Urgent Peripheral IV Insertion Adult [OM.PC] Stat Resuscitation Status Stat - Assessment/Plan Admission H&P: Please use this note as an admission H&P Last 24 Hours: My Active Orders 12/24/20 Breakfast Nothing per Oral Now Diet [DIET] 12/24/20 10:21 Cardiac Monitoring [RC] . DIRECTED EKG Documentation Completion [RC] ASDIRECTED Oxygen Therapy, ED [RC] PRN Peripheral IV Care [RC] . DIRECTED Pulse Oximetry [RC] CONTINUOUS Up With Assistance [RC] PFP Vital Signs [RC] PFP Chest 1V Frontal [CR] Stat Sodium Chloride 0.9% [Saline Flush] 10 ml FLUSH ASDIRECTED PRN Obtain Past Medical Record [OM.PC] Urgent Peripheral IV Insertion Adult [OM.PC] Stat Resuscitation Status Stat Assessment:: As above Plan: As above. Extensive precautions were given to the patient, who is in agreement with the treatment plan. The patient will require about 3-4 days of inpatient/acute care secondary to multiple health problems as above. [facility] provider assumes care in the a.m.
[2020-12-24] MEDS ORDERED: Diltiazem 25 MG/5 ML SDV IVPUSH ONE (10:22)
[2020-12-24] MEDS: Sodium Chloride 0.9% 10 ML Syringe FLUSH PRN ×3 (10:28→20:55)
[2020-12-24] MEDS ORDERED: Diltiazem 120 MG Cap.CD PO ONE (10:36)
[2020-12-24 10:58] LABS: PTT,PARTIAL THROMBOPLSTIN TIME 24.8 SEC (24.5-32.8)
[2020-12-24] MEDS ORDERED: Temazepam 15 MG Cap PO PRN (12:29)
[2020-12-24] MEDS ORDERED: Sodium Chloride 0.9% 10 ML Syringe FLUSH PRN (12:29)
[2020-12-24] MEDS ORDERED: Iopamidol 755 Mg/ML 100 ML Bottle IVPUSH ONE (12:32)
[2020-12-24] MEDS ORDERED: Acetaminophen 325 MG Tab PO PRN (13:00)
[2020-12-24] MEDS: Rivaroxaban 10 MG Tab PO SCH (13:49)
[2020-12-24] MEDS: Furosemide 40 MG/4 ML VIAL IVPUSH SCH ×2 (14:22→20:55)
[2020-12-24] MEDS: Potassium Chloride 20 MEQ Tab.ER PO SCH (18:04)
[2020-12-24] MEDS ORDERED: Metoprolol Succinate 50 MG Tab.ER PO SCH ×2 (20:00)
[2020-12-24] MEDS ORDERED: Aspirin 81 MG Tab.EC PO SCH (20:00)
[2020-12-24] MEDS ORDERED: Montelukast 10 MG Tab PO SCH (20:00)
[2020-12-24] MEDS ORDERED: atorvaSTATin 10 MG Tab PO SCH (20:00)
[2020-12-25] MEDS: Sodium Chloride 0.9% 10 ML Syringe FLUSH PRN (04:53)
[2020-12-25] MEDS: Furosemide 40 MG/4 ML VIAL IVPUSH SCH (04:53)
[2020-12-25] MEDS ORDERED: Diltiazem 120 MG Cap.CD PO SCH (08:00)
[2020-12-25] MEDS: Potassium Chloride 20 MEQ Tab.ER PO SCH ×2 (08:21→12:33)
[2020-12-25] MEDS ORDERED: Loratadine 10 MG Tab PO SCH (12:00)
[2020-12-25] MEDS ORDERED: Magnesium Oxide 400 MG Tab PO SCH (12:00)
--- NOTE | 2020-12-25 12:09 | PCM.PN ---
- General Info Date of Service: 12/25/20 Admission Dx/Problem (Free Text): Afib RVR medication none compliance. CHF acute Functional Status: Reports: Tolerating Diet, Ambulating, Urinating. Denies: New Symptoms - Review of Systems General: Reports: No Symptoms HEENT: Reports: No Symptoms Pulmonary: Reports: No Symptoms Cardiovascular: Reports: Palpitations (A brief period of palpitations this morning although none otherwise. ) Gastrointestinal: Reports: No Symptoms Genitourinary: Reports: No Symptoms Musculoskeletal: Reports: No Symptoms Skin: Reports: No Symptoms Neurological: Reports: No Symptoms Psychiatric: Reports: No Symptoms - Patient Data Vitals - Most Recent: Last Vital Signs Temp 96.7 F L 12/25/20 08:00 Pulse 80 12/25/20 08:21 Resp 14 12/25/20 08:00 BP 118/70 12/25/20 08:21 Pulse Ox 98 12/25/20 08:00 Weight - Most Recent: 149 lb 4.8 oz I&O - Last 24 Hours: Intake & Output 12/24/20 12/25/20 12/25/20 22:59 06:59 14:59 Intake Total 50 640 Output Total 1400 900 Balance -1400 -850 640 Lab Results Last 24 Hours: Laboratory Results - last 24 hr 12/24/20 12/24/20 12/25/20 Range/Units 15:25 21:50 06:46 WBC 10.9 H (4.0-10.2) K/uL RBC 3.85 (3.77-5.09) M/uL Hgb 11.2 L (11.7-15.5) g/dL Hct 34.9 (34.0-46.0) % MCV 90.6 (84.0-98.0) fL MCH 29.1 (28.2-33.3) pg MCHC 32.1 (31.7-36.0) g/dL RDW 14.9 H (11.2-14.1) % Plt Count 318 (150-350) K/uL Neut % (Auto) 72.1 (45.0-80.0) % Lymph % (Auto) 14.8 (10.0-50.0) % [place] % (Auto) 9.7 (2.0-14.0) % Eos % (Auto) 2.9 (0.0-5.0) % Baso % (Auto) 0.5 (0.0-2.0) % Neut # (Auto) 7.86 H (1.40-7.00) K/uL Lymph # (Auto) 1.62 (0.50-3.50) K/uL [place] # (Auto) 1.06 H (0.00-1.00) K/uL Eos # (Auto) 0.32 (0.00-0.50) K/uL Baso # (Auto) 0.06 (0.00-0.20) K/uL D-Dimer, Quantitative (0-400) ng/mL Sodium (136-145) mmol/L Potassium (3.5-5.1) mmol/L Chloride (98-107) mmol/L Carbon Dioxide (21.0-32.0) mmol/L BUN (7-18) mg/dL Creatinine (0.51-1.17) mg/dL Est Cr Clr Drug Dosing mL/min Estimated GFR (MDRD) mL/min Glucose (70-99) mg/dL Hemoglobin A1c (4.3-5.7) % Calcium (8.5-10.1) mg/dL Total Bilirubin (0.2-1.0) mg/dL AST (15-37) U/L ALT (12-78) U/L Alkaline Phosphatase (46-116) IU/L Creatine Kinase 85 114 (26-308) U/L Creatine Kinase Index 2.2 2.0 (0.0-2.5) % CK-MB (CK-2) 1.90 2.30 (0.00-3.60) ng/mL Troponin I 0.015 0.012 (0.000-0.056) ng/mL NT-Pro-B Natriuret Pep (0-125) pg/mL Total Protein (6.4-8.2) g/dL Albumin (3.4-5.0) g/dL Triglycerides (30-150) mg/dL Cholesterol (100-200) mg/dL LDL Cholesterol, Calc (0-100) mg/dL HDL Cholesterol (40-60) mg/dL 12/25/20 12/25/20 12/25/20 Range/Units 06:46 06:46 06:46 WBC (4.0-10.2) K/uL RBC (3.77-5.09) M/uL Hgb (11.7-15.5) g/dL Hct (34.0-46.0) % MCV (84.0-98.0) fL MCH (28.2-33.3) pg MCHC (31.7-36.0) g/dL RDW (11.2-14.1) % Plt Count (150-350) K/uL Neut % (Auto) (45.0-80.0) % Lymph % (Auto) (10.0-50.0) % [place] % (Auto) (2.0-14.0) % Eos % (Auto) (0.0-5.0) % Baso % (Auto) (0.0-2.0) % Neut # (Auto) (1.40-7.00) K/uL Lymph # (Auto) (0.50-3.50) K/uL [place] # (Auto) (0.00-1.00) K/uL Eos # (Auto) (0.00-0.50) K/uL Baso # (Auto) (0.00-0.20) K/uL D-Dimer, Quantitative 1020 H (0-400) ng/mL Sodium 138 (136-145) mmol/L Potassium 3.2 L (3.5-5.1) mmol/L Chloride 98 (98-107) mmol/L Carbon Dioxide 29.0 (21.0-32.0) mmol/L BUN 19 H (7-18) mg/dL Creatinine 1.18 H (0.51-1.17) mg/dL Est Cr Clr Drug Dosing 31.28 mL/min Estimated GFR (MDRD) 44 mL/min Glucose 100 H (70-99) mg/dL Hemoglobin A1c 6.0 H (4.3-5.7) % Calcium 9.0 (8.5-10.1) mg/dL Total Bilirubin 1.4 H (0.2-1.0) mg/dL AST 53 H (15-37) U/L ALT 56 (12-78) U/L Alkaline Phosphatase 174 H (46-116) IU/L Creatine Kinase 95 (26-308) U/L Creatine Kinase Index 1.8 (0.0-2.5) % CK-MB (CK-2) 1.70 (0.00-3.60) ng/mL Troponin I 0.015 (0.000-0.056) ng/mL NT-Pro-B Natriuret Pep 3598 H (0-125) pg/mL Total Protein 7.0 (6.4-8.2) g/dL Albumin 3.7 (3.4-5.0) g/dL Triglycerides 54 (30-150) mg/dL Cholesterol 70 L (100-200) mg/dL LDL Cholesterol, Calc 15 (0-100) mg/dL HDL Cholesterol 44 (40-60) mg/dL Med Orders - Current: Current Medications Acetaminophen (Acetaminophen 325 Mg Tab) 650 mg PO Q4H PRN PRN Reason: Pain Aspirin (Aspirin 81 Mg Tab.Ec) 81 mg PO BEDTIME [facility] Last Admin: 12/24/20 20:52 Dose: 81 mg Documented by: Atorvastatin Calcium (Atorvastatin 10 Mg Tab) 10 mg PO BEDTIME [facility] Last Admin: 12/24/20 20:52 Dose: 10 mg Documented by: Diltiazem HCl (Diltiazem 120 Mg Cap.Cd) 120 mg PO DAILY [facility] Last Admin: 12/25/20 08:21 Dose: 120 mg Documented by: Furosemide (Furosemide 40 Mg/4 Ml Vial) 40 mg IVPUSH DAILY [facility] Loratadine (Loratadine 10 Mg Tab) 10 mg PO DAILY@1200 [facility] Magnesium Oxide (Magnesium Oxide 400 Mg Tab) 400 mg PO DAILY@1200 [facility] Metoprolol Succinate (Metoprolol Succinate 50 Mg Tab.Er) 50 mg PO BEDTIME [facility] Montelukast Sodium (Montelukast 10 Mg Tab) 10 mg PO BEDTIME [facility] Last Admin: 12/24/20 20:52 Dose: 10 mg Documented by: Potassium Chloride (Potassium Chloride 20 Meq Tab.Er) 20 meq PO TID [facility] Last Admin: 12/25/20 08:21 Dose: 20 meq Documented by: Rivaroxaban (Rivaroxaban 10 Mg Tab) 10 mg PO DAILY@1200 [facility] Last Admin: 12/24/20 13:49 Dose: 10 mg Documented by: Sodium Chloride (Sodium Chloride 0.9% 10 Ml Syringe) 10 ml FLUSH ASDIRECTED PRN PRN Reason: Keep Vein Open Last Admin: 12/25/20 04:53 Dose: 10 ml Documented by: Sodium Chloride (Sodium Chloride 0.9% 10 Ml Syringe) 10 ml FLUSH Q12HR PRN PRN Reason: Keep Vein Open Temazepam (Temazepam 15 Mg Cap) 15 mg PO BEDTIME PRN PRN Reason: Insomnia Discontinued Medications Diltiazem HCl (Diltiazem 25 Mg/5 Ml Sdv) 20 mg IVPUSH ONETIME ONE Stop: 12/24/20 10:23 Last Admin: 12/24/20 10:27 Dose: 10 mg Documented by: Diltiazem HCl (Diltiazem 120 Mg Cap.Cd) 120 mg PO ONETIME ONE Stop: 12/24/20 10:37 Last Admin: 12/24/20 10:41 Dose: 120 mg Documented by: Famotidine (Famotidine 20 Mg/2 Ml Sdv) 40 mg IVPUSH ONETIME ONE Stop: 12/24/20 10:22 Last Admin: 12/24/20 10:28 Dose: 40 mg Documented by: Furosemide (Furosemide 40 Mg/4 Ml Vial) 40 mg IVPUSH Q8H [facility] Last Admin: 12/25/20 04:53 Dose: 40 mg Documented by: Iopamidol (Iopamidol 755 Mg/Ml 100 Ml Bottle) 100 ml IVPUSH ONETIME ONE Stop: 12/24/20 12:33 Last Admin: 12/24/20 15:00 Dose: 100 ml Documented by: Metoprolol Succinate (Metoprolol Succinate 50 Mg Tab.Er) 50 mg PO BEDTIME [facility] Metoprolol Succinate (Metoprolol Succinate 50 Mg Tab.Er) 25 mg PO BEDTIME [facility] Last Admin: 12/24/20 20:54 Dose: 50 mg Documented by: - Patient Data Lab Results Last 24 hrs: Laboratory Results - last 24 hr 12/24/20 12/24/20 12/25/20 Range/Units 15:25 21:50 06:46 WBC 10.9 H (4.0-10.2) K/uL RBC 3.85 (3.77-5.09) M/uL Hgb 11.2 L (11.7-15.5) g/dL Hct 34.9 (34.0-46.0) % MCV 90.6 (84.0-98.0) fL MCH 29.1 (28.2-33.3) pg MCHC 32.1 (31.7-36.0) g/dL RDW 14.9 H (11.2-14.1) % Plt Count 318 (150-350) K/uL Neut % (Auto) 72.1 (45.0-80.0) % Lymph % (Auto) 14.8 (10.0-50.0) % [place] % (Auto) 9.7 (2.0-14.0) % Eos % (Auto) 2.9 (0.0-5.0) % Baso % (Auto) 0.5 (0.0-2.0) % Neut # (Auto) 7.86 H (1.40-7.00) K/uL Lymph # (Auto) 1.62 (0.50-3.50) K/uL [place] # (Auto) 1.06 H (0.00-1.00) K/uL Eos # (Auto) 0.32 (0.00-0.50) K/uL Baso # (Auto) 0.06 (0.00-0.20) K/uL D-Dimer, Quantitative (0-400) ng/mL Sodium (136-145) mmol/L Potassium (3.5-5.1) mmol/L Chloride (98-107) mmol/L Carbon Dioxide (21.0-32.0) mmol/L BUN (7-18) mg/dL Creatinine (0.51-1.17) mg/dL Est Cr Clr Drug Dosing mL/min Estimated GFR (MDRD) mL/min Glucose (70-99) mg/dL Hemoglobin A1c (4.3-5.7) % Calcium (8.5-10.1) mg/dL Total Bilirubin (0.2-1.0) mg/dL AST (15-37) U/L ALT (12-78) U/L Alkaline Phosphatase (46-116) IU/L Creatine Kinase 85 114 (26-308) U/L Creatine Kinase Index 2.2 2.0 (0.0-2.5) % CK-MB (CK-2) 1.90 2.30 (0.00-3.60) ng/mL Troponin I 0.015 0.012 (0.000-0.056) ng/mL NT-Pro-B Natriuret Pep (0-125) pg/mL Total Protein (6.4-8.2) g/dL Albumin (3.4-5.0) g/dL Triglycerides (30-150) mg/dL Cholesterol (100-200) mg/dL LDL Cholesterol, Calc (0-100) mg/dL HDL Cholesterol (40-60) mg/dL 12/25/20 12/25/20 12/25/20 Range/Units 06:46 06:46 06:46 WBC (4.0-10.2) K/uL RBC (3.77-5.09) M/uL Hgb (11.7-15.5) g/dL Hct (34.0-46.0) % MCV (84.0-98.0) fL MCH (28.2-33.3) pg MCHC (31.7-36.0) g/dL RDW (11.2-14.1) % Plt Count (150-350) K/uL Neut % (Auto) (45.0-80.0) % Lymph % (Auto) (10.0-50.0) % [place] % (Auto) (2.0-14.0) % Eos % (Auto) (0.0-5.0) % Baso % (Auto) (0.0-2.0) % Neut # (Auto) (1.40-7.00) K/uL Lymph # (Auto) (0.50-3.50) K/uL [place] # (Auto) (0.00-1.00) K/uL Eos # (Auto) (0.00-0.50) K/uL Baso # (Auto) (0.00-0.20) K/uL D-Dimer, Quantitative 1020 H (0-400) ng/mL Sodium 138 (136-145) mmol/L Potassium 3.2 L (3.5-5.1) mmol/L Chloride 98 (98-107) mmol/L Carbon Dioxide 29.0 (21.0-32.0) mmol/L BUN 19 H (7-18) mg/dL Creatinine 1.18 H (0.51-1.17) mg/dL Est Cr Clr Drug Dosing 31.28 mL/min Estimated GFR (MDRD) 44 mL/min Glucose 100 H (70-99) mg/dL Hemoglobin A1c 6.0 H (4.3-5.7) % Calcium 9.0 (8.5-10.1) mg/dL Total Bilirubin 1.4 H (0.2-1.0) mg/dL AST 53 H (15-37) U/L ALT 56 (12-78) U/L Alkaline Phosphatase 174 H (46-116) IU/L Creatine Kinase 95 (26-308) U/L Creatine Kinase Index 1.8 (0.0-2.5) % CK-MB (CK-2) 1.70 (0.00-3.60) ng/mL Troponin I 0.015 (0.000-0.056) ng/mL NT-Pro-B Natriuret Pep 3598 H (0-125) pg/mL Total Protein 7.0 (6.4-8.2) g/dL Albumin 3.7 (3.4-5.0) g/dL Triglycerides 54 (30-150) mg/dL Cholesterol 70 L (100-200) mg/dL LDL Cholesterol, Calc 15 (0-100) mg/dL HDL Cholesterol 44 (40-60) mg/dL Result Diagrams: 12/25/20 06:46 12/25/20 06:46 Sepsis Event Note - Evaluation Sepsis Screening Result: No Definite Risk - Focused Exam Vital Signs: Vital Signs Temp Pulse Pulse Resp BP BP BP 12/25/20 08:21 80 118/70 12/25/20 08:00 96.7 F L 80 14 118/70 12/25/20 04:55 98 F 72 16 120/81 12/25/20 00:00 98.3 F 70 16 151/87 H Pulse Ox 12/25/20 08:21 12/25/20 08:00 98 12/25/20 04:55 97 12/25/20 00:00 99 - My Orders Last 24 Hours: My Active Orders 12/25/20 Lunch Heart Healthy Diet [DIET] 12/26/20 05:11 BASIC METABOLIC PANEL,BMP [CHEM] AM CBC WITH AUTO DIFF [HEME] AM PRO B-TYPE NATRIUR PEPT,BNPPRO [CHEM] DAILY TROPONIN I [CHEM] AM 12/26/20 08:00 Furosemide [Lasix] 40 mg IVPUSH DAILY
[2020-12-25] MEDS: Rivaroxaban 10 MG Tab PO SCH (12:33)
[2020-12-25 12:45] VITALS: BP 121/66; PULSE 93
--- NOTE | 2020-12-25 16:27 | PCM.DCSUM1 ---
Discharge Summary - Hospital Course HPI Initial Comments: Pt admitted with A fib RVR and CHF. Has had poor compliance on her xarelto primarily due to cost. She has a history of cardioversion and ablation as well. Paroxysmal a fib in the past. Diagnosis: Stroke: No - Discharge Data Discharge Date: 12/25/20 Discharge Disposition: Home, Self-Care 01 Condition: Good - Referral to Home Health Primary Care Physician: Ana Garces NP - Discharge Diagnosis/Problem(s) (1) Atrial fibrillation SNOMED Code(s): 51121570 ICD Code: I48.91 - UNSPECIFIED ATRIAL FIBRILLATION Status: Acute Priority: High Current Visit: Yes Problem Details: Patient has maintained in atrial fibrillation throughout the night. She is on oral metoprolol as well as Cardizem. She has had no tacky heart rate. Her troponin is normal. She has no other symptoms or complaints. She most likely is going to be persistent atrial fibrillation. She really is not interested in cardioversion or ablation at this time. Although this decision does not have to be made acutely. We will discharge her home with metoprolol as well as Cardizem 120 mg p.o. daily. As well as Xarelto which he already has at home. Qualifiers: Atrial fibrillation type: persistent (not longstanding) Qualified Code(s): I48.19 - Other persistent atrial fibrillation; I48.1 - Persistent atrial fibrillation (2) Congestive heart failure SNOMED Code(s): 08885340 ICD Code: I50.9 - HEART FAILURE, UNSPECIFIED Status: Acute Priority: High Current Visit: Yes Problem Details: She has diuresed well with the Lasix. Her edema in her lower extremity is resolved. Her lung sounds are clear. I do not feel that she needs any continued diuresis at home. She should get a echo in the clinic especially since she is having a possible hip replacement here in the next couple of months. Qualifiers: Heart failure type: systolic Heart failure chronicity: acute on chronic Qualified Code(s): I50.23 - Acute on chronic systolic (congestive) heart failure (3) Elevated LFTs SNOMED Code(s): 874706398 ICD Code: R79.89 - OTHER SPECIFIED ABNORMAL FINDINGS OF BLOOD CHEMISTRY Status: Acute Priority: Medium Current Visit: Yes Onset Date: 12/24/20 Problem Details: Likely secondary to her CHF. 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 (4) Elevated d-dimer SNOMED Code(s): 825986697 ICD Code: R79.89 - OTHER SPECIFIED ABNORMAL FINDINGS OF BLOOD CHEMISTRY Status: Acute Priority: High Current Visit: Yes Onset Date: 12/24/20 Problem Details: DVT US and CTA of the chest are negative. Will be discharged on Xarelto (5) Dyslipidemia SNOMED Code(s): 934883306 ICD Code: E78.5 - HYPERLIPIDEMIA, UNSPECIFIED Status: Chronic Priority: Medium Current Visit: Yes Problem Details: Lipid panel normal. Continue home therapy. (6) Hypertension SNOMED Code(s): 05640373 ICD Code: I10 - ESSENTIAL (PRIMARY) HYPERTENSION Status: Chronic Priority: Medium Current Visit: Yes Problem Details: Stable while in the hospital. Qualifiers: Hypertension type: essential hypertension Qualified Code(s): I10 - Essential (primary) hypertension (7) Renal insufficiency SNOMED Code(s): 496632670, 158520291 ICD Code: N28.9 - DISORDER OF KIDNEY AND URETER, UNSPECIFIED Status: Chronic Priority: Medium Current Visit: Yes Problem Details: Continued appropriate renal function. Discontinue Lasix - Patient Summary/Data Hospital Course: Patient was admitted to the hospital under acute care services for recurrence of atrial fibrillation with RVR. The patient has had a longstanding noncompliance with Xarelto as well as her metoprolol. She primarily has not taken the Xarelto because it is too expensive for her. She has had an increased weight gain recently. She came into the emergency department was in A. fib with RVR and was found to be in congestive heart failure. She was given a small dose of Cardizem IV and then additional Cardizem orally. She diuresed well with 40 mg of Lasix 3 times daily. She has maintained atrial fibrillation with a controlled rate in the 70s to 80s. She is otherwise asymptomatic and she feels back to baseline. Cardiac enzymes are negative. Rest of her labs are rather unremarkable. She has had a cardiac ablation as well as cardioversion in the past but she is not interested in these today and understands the risk of long-term anticoagulation that I discussed with her at length to include any falls or head injury she needs to be evaluated for intracranial hemorrhage also the risk of bleeding with any procedure. Her vitals have stabilized and she has had a controlled heart rate. She has never been hypotensive. She is never been weak dizzy lightheaded or had any syncope. She is scheduled to have a hip replacement in the next month which most likely will not happen due to this development of atrial fibrillation. She will need an echocardiogram and cardiac consulting prior to the procedure. He is a very active and otherwise fairly healthy 80-year-old female that lives at home with her . Follow-up with primary care early next week check her heart rate daily and record. And daily weights. Do not feel that she needs continued diuresis as she has done quite well and she is asymptomatic at this time and has no pedal edema. - Patient Instructions Diet: Heart Healthy Diet Other/Special Instructions: Start taking the Xarelto that you have at home. 10mg daily. This was the dose you were on in the hospital. PCP to possibly increase to 20mg daily. Continue your other home medications. To include your metoprolol. Start taking the Cardizem 120mg ER daily. Rx to [facility]. Check your heart rate daily. 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 Continue your magnesium at 400mg daily. Weight yourself daily. Low salt diet. Recheck with PCP tuesday next week. Sooner if any problems or concerns. - Discharge Plan *PRESCRIPTION DRUG MONITORING PROGRAM REVIEWED*: Not Applicable *COPY OF PRESCRIPTION DRUG MONITORING REPORT IN PATIENT ARTHUR: Not Applicable Prescriptions/Med Rec: Diltiazem [Cardizem CD] 120 mg PO DAILY #30 cap.cd Magnesium Oxide 800 mg PO DAILY@1200 #60 Home Medications: Home Meds Metoprolol Succinate 50 mg PO BEDTIME 05/16/14 [History] Aspirin [Halfprin] 81 mg PO BEDTIME 06/29/17 [History] Lutein/Minerals/Vit A,C & E [Ocuvite] 1 tab PO DAILY@1200 06/29/17 [History] Montelukast [Singulair] 10 mg PO BEDTIME 06/29/17 [History] Multivit-Min/FA/Lycopen/Lutein [Centrum Silver Tablet] 1 tab PO DAILY@1200 06/29/17 [History] atorvaSTATin [Lipitor] 10 mg PO BEDTIME 06/29/17 [History] Calcium Carbonate [Calcium] 600 mg PO DAILY@1200 12/24/20 [History] Cholecalciferol (Vitamin D3) [Vitamin D3] 25 mcg PO DAILY@1200 12/24/20 [History] Loratadine [Claritin] 10 mg PO DAILY@1200 12/24/20 [History] Diltiazem [Cardizem CD] 120 mg PO DAILY #30 cap.cd 12/25/20 [Rx] Magnesium Oxide 800 mg PO DAILY@1200 #60 12/25/20 [Rx] Potassium Chloride [Klor-Con M20] 20 meq PO TID tab.er 12/25/20 [Rx] Rivaroxaban [Xarelto] 10 mg PO DAILY@1200 tablet 12/25/20 [Rx] Temazepam [Restoril] 15 mg PO BEDTIME PRN cap 12/25/20 [Rx] Forms: ED Department Discharge Referrals: Ana Garces NP [Primary Care Provider] - - Discharge Summary/Plan Comment DC Time >30 min.: Yes - General Info Date of Service: 12/25/20 Admission Dx/Problem (Free Text: Afib RVR CHF> Subjective Update: Patient rested well throughout the night. She has not had any palpitations. She has had no shortness of breath chest pain weakness dizziness lightheadedness. She feels back to herself and actually feels quite well. The edema in her lower extremities has resolved. She has been ambulatory around the room and feels at her baseline. Functional Status: Reports: Pain Controlled - Review of Systems General: Reports: No Symptoms HEENT: Reports: No Symptoms Pulmonary: Reports: No Symptoms Cardiovascular: Reports: No Symptoms Gastrointestinal: Reports: No Symptoms Genitourinary: Reports: No Symptoms Musculoskeletal: Reports: No Symptoms Skin: Reports: No Symptoms Neurological: Reports: No Symptoms Psychiatric: Reports: No Symptoms - Patient Data Vitals - Most Recent: Last Vital Signs Temp 97.6 F 12/25/20 12:00 Pulse 93 12/25/20 12:00 Resp 16 12/25/20 12:00 BP 121/66 12/25/20 12:00 Pulse Ox 97 12/25/20 12:00 Weight - Most Recent: 149 lb 4.8 oz I&O - Last 24 hours: Intake & Output 12/25/20 12/25/20 12/25/20 06:59 14:59 22:59 Intake Total 50 1490 150 Output Total 900 900 Balance -850 590 150 Lab Results - Last 24 hrs: Laboratory Results - last 24 hr 12/24/20 12/25/20 12/25/20 Range/Units 21:50 06:46 06:46 WBC 10.9 H (4.0-10.2) K/uL RBC 3.85 (3.77-5.09) M/uL Hgb 11.2 L (11.7-15.5) g/dL Hct 34.9 (34.0-46.0) % MCV 90.6 (84.0-98.0) fL MCH 29.1 (28.2-33.3) pg MCHC 32.1 (31.7-36.0) g/dL RDW 14.9 H (11.2-14.1) % Plt Count 318 (150-350) K/uL Neut % (Auto) 72.1 (45.0-80.0) % Lymph % (Auto) 14.8 (10.0-50.0) % [place] % (Auto) 9.7 (2.0-14.0) % Eos % (Auto) 2.9 (0.0-5.0) % Baso % (Auto) 0.5 (0.0-2.0) % Neut # (Auto) 7.86 H (1.40-7.00) K/uL Lymph # (Auto) 1.62 (0.50-3.50) K/uL [place] # (Auto) 1.06 H (0.00-1.00) K/uL Eos # (Auto) 0.32 (0.00-0.50) K/uL Baso # (Auto) 0.06 (0.00-0.20) K/uL D-Dimer, Quantitative 1020 H (0-400) ng/mL Sodium (136-145) mmol/L Potassium (3.5-5.1) mmol/L Chloride (98-107) mmol/L Carbon Dioxide (21.0-32.0) mmol/L BUN (7-18) mg/dL Creatinine (0.51-1.17) mg/dL Est Cr Clr Drug Dosing mL/min Estimated GFR (MDRD) mL/min Glucose (70-99) mg/dL Hemoglobin A1c (4.3-5.7) % Calcium (8.5-10.1) mg/dL Total Bilirubin (0.2-1.0) mg/dL AST (15-37) U/L ALT (12-78) U/L Alkaline Phosphatase (46-116) IU/L Creatine Kinase 114 (26-308) U/L Creatine Kinase Index 2.0 (0.0-2.5) % CK-MB (CK-2) 2.30 (0.00-3.60) ng/mL Troponin I 0.012 (0.000-0.056) ng/mL NT-Pro-B Natriuret Pep (0-125) pg/mL Total Protein (6.4-8.2) g/dL Albumin (3.4-5.0) g/dL Triglycerides (30-150) mg/dL Cholesterol (100-200) mg/dL LDL Cholesterol, Calc (0-100) mg/dL HDL Cholesterol (40-60) mg/dL 12/25/20 12/25/20 Range/Units 06:46 06:46 WBC (4.0-10.2) K/uL RBC (3.77-5.09) M/uL Hgb (11.7-15.5) g/dL Hct (34.0-46.0) % MCV (84.0-98.0) fL MCH (28.2-33.3) pg MCHC (31.7-36.0) g/dL RDW (11.2-14.1) % Plt Count (150-350) K/uL Neut % (Auto) (45.0-80.0) % Lymph % (Auto) (10.0-50.0) % [place] % (Auto) (2.0-14.0) % Eos % (Auto) (0.0-5.0) % Baso % (Auto) (0.0-2.0) % Neut # (Auto) (1.40-7.00) K/uL Lymph # (Auto) (0.50-3.50) K/uL [place] # (Auto) (0.00-1.00) K/uL Eos # (Auto) (0.00-0.50) K/uL Baso # (Auto) (0.00-0.20) K/uL D-Dimer, Quantitative (0-400) ng/mL Sodium 138 (136-145) mmol/L Potassium 3.2 L (3.5-5.1) mmol/L Chloride 98 (98-107) mmol/L Carbon Dioxide 29.0 (21.0-32.0) mmol/L BUN 19 H (7-18) mg/dL Creatinine 1.18 H (0.51-1.17) mg/dL Est Cr Clr Drug Dosing 31.28 mL/min Estimated GFR (MDRD) 44 mL/min Glucose 100 H (70-99) mg/dL Hemoglobin A1c 6.0 H (4.3-5.7) % Calcium 9.0 (8.5-10.1) mg/dL Total Bilirubin 1.4 H (0.2-1.0) mg/dL AST 53 H (15-37) U/L ALT 56 (12-78) U/L Alkaline Phosphatase 174 H (46-116) IU/L Creatine Kinase 95 (26-308) U/L Creatine Kinase Index 1.8 (0.0-2.5) % CK-MB (CK-2) 1.70 (0.00-3.60) ng/mL Troponin I 0.015 (0.000-0.056) ng/mL NT-Pro-B Natriuret Pep 3598 H (0-125) pg/mL Total Protein 7.0 (6.4-8.2) g/dL Albumin 3.7 (3.4-5.0) g/dL Triglycerides 54 (30-150) mg/dL Cholesterol 70 L (100-200) mg/dL LDL Cholesterol, Calc 15 (0-100) mg/dL HDL Cholesterol 44 (40-60) mg/dL Med Orders - Current: Current Medications Acetaminophen (Acetaminophen 325 Mg Tab) 650 mg PO Q4H PRN PRN Reason: Pain Aspirin (Aspirin 81 Mg Tab.Ec) 81 mg PO BEDTIME [facility] Last Admin: 12/24/20 20:52 Dose: 81 mg Documented by: Atorvastatin Calcium (Atorvastatin 10 Mg Tab) 10 mg PO BEDTIME [facility] Last Admin: 12/24/20 20:52 Dose: 10 mg Documented by: Diltiazem HCl (Diltiazem 120 Mg Cap.Cd) 120 mg PO DAILY [facility] Last Admin: 12/25/20 08:21 Dose: 120 mg Documented by: Furosemide (Furosemide 40 Mg/4 Ml Vial) 40 mg IVPUSH DAILY [facility] Loratadine (Loratadine 10 Mg Tab) 10 mg PO DAILY@1200 [facility] Last Admin: 12/25/20 12:33 Dose: 10 mg Documented by: Magnesium Oxide (Magnesium Oxide 400 Mg Tab) 400 mg PO DAILY@1200 [facility] Last Admin: 12/25/20 12:34 Dose: 400 mg Documented by: Metoprolol Succinate (Metoprolol Succinate 50 Mg Tab.Er) 50 mg PO BEDTIME [facility] Montelukast Sodium (Montelukast 10 Mg Tab) 10 mg PO BEDTIME [facility] Last Admin: 12/24/20 20:52 Dose: 10 mg Documented by: Potassium Chloride (Potassium Chloride 20 Meq Tab.Er) 20 meq PO TID [facility] Last Admin: 12/25/20 12:33 Dose: 20 meq Documented by: Rivaroxaban (Rivaroxaban 10 Mg Tab) 10 mg PO DAILY@1200 [facility] Last Admin: 12/25/20 12:33 Dose: 10 mg Documented by: Sodium Chloride (Sodium Chloride 0.9% 10 Ml Syringe) 10 ml FLUSH ASDIRECTED PRN PRN Reason: Keep Vein Open Last Admin: 12/25/20 04:53 Dose: 10 ml Documented by: Sodium Chloride (Sodium Chloride 0.9% 10 Ml Syringe) 10 ml FLUSH Q12HR PRN PRN Reason: Keep Vein Open Temazepam (Temazepam 15 Mg Cap) 15 mg PO BEDTIME PRN PRN Reason: Insomnia Discontinued Medications Diltiazem HCl (Diltiazem 25 Mg/5 Ml Sdv) 20 mg IVPUSH ONETIME ONE Stop: 12/24/20 10:23 Last Admin: 12/24/20 10:27 Dose: 10 mg Documented by: Diltiazem HCl (Diltiazem 120 Mg Cap.Cd) 120 mg PO ONETIME ONE Stop: 12/24/20 10:37 Last Admin: 12/24/20 10:41 Dose: 120 mg Documented by: Famotidine (Famotidine 20 Mg/2 Ml Sdv) 40 mg IVPUSH ONETIME ONE Stop: 12/24/20 10:22 Last Admin: 12/24/20 10:28 Dose: 40 mg Documented by: Furosemide (Furosemide 40 Mg/4 Ml Vial) 40 mg IVPUSH Q8H [facility] Last Admin: 12/25/20 04:53 Dose: 40 mg Documented by: Iopamidol (Iopamidol 755 Mg/Ml 100 Ml Bottle) 100 ml IVPUSH ONETIME ONE Stop: 12/24/20 12:33 Last Admin: 12/24/20 15:00 Dose: 100 ml Documented by: Metoprolol Succinate (Metoprolol Succinate 50 Mg Tab.Er) 50 mg PO BEDTIME [facility] Metoprolol Succinate (Metoprolol Succinate 50 Mg Tab.Er) 25 mg PO BEDTIME [facility] Last Admin: 12/24/20 20:54 Dose: 50 mg Documented by: - Exam General: Reports: Alert, Oriented HEENT: Reports: Pupils Equal, Pupils Reactive, EOMI, Mucous Membr. Moist/[place] Neck: Reports: Supple Lungs: Reports: Clear to Auscultation, Normal Respiratory Effort GI/Abdominal Exam: Normal Bowel Sounds, Soft, No Distention (Female) Exam: Deferred Rectal (Female) Exam: Deferred Back Exam: Reports: Normal Inspection, Full Range of Motion Extremities: Normal Inspection, Normal Range of Motion, Normal Capillary Refill, Pedal Edema (Scant if any at all. ) Skin: Reports: Warm, Dry, Intact Neurological: Reports: No New Focal Deficit Psy/Mental Status: Reports: Alert, Normal Affect, Normal Mood
[2020-12-25] MEDS ORDERED: Metoprolol Succinate 50 MG Tab.ER PO SCH (20:00)
[2020-12-26] MEDS ORDERED: Furosemide 40 MG/4 ML VIAL IVPUSH SCH (08:00)
== END 2020-12-25 17:35 | disposition home or self-care (01) | DRG 291 ==
LOC: LL.ED 10:19 → LL.MS 12:02
PROVIDERS: ADMIT Family Medicine; ATTEND Family Medicine
DX: I48.0 Paroxysmal atrial fibrillation (principal); I13.0 Hypertensive heart and chronic kidney disease with heart failure and stage 1 through stage 4 chronic kidney disease, or unspecified chronic kidney disease; I50.23 Acute on chronic systolic (congestive) heart failure; I48.19 Other persistent atrial fibrillation; E78.5 Hyperlipidemia, unspecified; I11.0 Hypertensive heart disease with heart failure; E80.6 Other disorders of bilirubin metabolism; N18.9 Chronic kidney disease, unspecified; R79.89 Other specified abnormal findings of blood chemistry; E79.0 Hyperuricemia without signs of inflammatory arthritis and tophaceous disease; I13.10 Hypertensive heart and chronic kidney disease without heart failure, with stage 1 through stage 4 chronic kidney disease, or unspecified chronic kidney disease; I95.9 Hypotension, unspecified; J30.9 Allergic rhinitis, unspecified; H54.7 Unspecified visual loss; E78.00 Pure hypercholesterolemia, unspecified; I27.20 Pulmonary hypertension, unspecified; I08.1 Rheumatic disorders of both mitral and tricuspid valves; K57.90 Diverticulosis of intestine, part unspecified, without perforation or abscess without bleeding; N18.30 Chronic kidney disease, stage 3 unspecified; M54.9 Dorsalgia, unspecified; J44.9 Chronic obstructive pulmonary disease, unspecified; M54.2 Cervicalgia; G89.29 Other chronic pain; M19.90 Unspecified osteoarthritis, unspecified site; E66.9 Obesity, unspecified; D63.1 Anemia in chronic kidney disease; Z98.49 Cataract extraction status, unspecified eye; Z79.82 Long term (current) use of aspirin; Z79.899 Other long term (current) drug therapy; Z90.49 Acquired absence of other specified parts of digestive tract; Z68.26 Body mass index [BMI] 26.0-26.9, adult
CPT/HCPCS: 36415; 71045; 71275; 80053; 80061; 82550; 82553; 83036; 83605; 83735; 83880; 84443; 84484; 84550; 85025; 85379; 85610; 85730; 93005; 93970; 96374; 96375; 99285-25; A9270-GY; J1940; J3490; Q9967